=== PATIENT | female | born 1985 | race Caucasian/White ===

== ENCOUNTER 2023-06-11 13:53 | Outpatient (CLI) | payer MEDICAID | END 2023-06-11 23:59 | disposition critical access hospital (66) | LOC: EMS 13:53 | DX: R10.817 Generalized abdominal tenderness (principal); R11.0 Nausea | CPT/HCPCS: A0425; A0429; A0999 ==

== ENCOUNTER 2023-06-11 14:17 | Emergency (ER) | payer MEDICAID, OTHER ==
[2023-06-11] MEDS ORDERED: BUPRENORPHINE 0.3 MG/ML VIAL IM ONE (14:22)
--- NOTE | 2023-06-11 14:26 | ED Physician Documentation ---
History of Present Illness - Stated complaint Stated Complaint: ABD PX - Chief complaint Chief Complaint: Abd Pain - History obtained from History obtained from: Patient - History of Present Illness Timing: Yesterday Pain level max: 8 Pain level now: 8 - Additonal information Additional information: Patient is a 37-year-old female who states that she uses methamphetamines and fentanyl. She states last used 2 days ago. She states she went to [facility] for detox but they "were not giving me enough drugs". Therefore she left this morning. She is now complaining of continued abdominal pain. No fevers. No chills. She states she uses about a gram of fentanyl per day. She denies any alcohol use. Denies any benzodiazepine use. Denies any possibility of . Nothing makes it better or worse. No fevers. No chills. No cough. No congestion. Describes her abdominal pain is diffuse, crampy. Patient is generally uncooperative with exam. Patient denies being suicidal or homicidal Review of Systems Constitutional: denies: Fever, Chills Throat: denies: Sore throat Cardiac: denies: Chest pain / pressure, Palpitations Respiratory: denies: Dyspnea, Cough GI: reports: Nausea, Diarrhea. denies: Vomiting, Hematemesis, Bloody / black stool : denies: Dysuria, Frequency, Hesitancy, Now EGA Skin: denies: Rash Musculoskeletal: denies: Neck pain, Back pain Neurologic: denies: Headache PD PAST MEDICAL HISTORY - Past Medical History Past Medical History: No - Past Surgical History Past Surgical History: No - Allergies Allergies/Adverse Reactions: Allergies Allergy/AdvReac Type Severity Reaction Status Date / Time all antibiotics. Allergy Unknown Uncoded 06/11/23 14:30 - Living Situation Living Arrangement: reports: Homeless - Social History Does the pt smoke?: No Does the pt drink ETOH?: No Substance Use and Type: Meth, Other (fentanyl) - Family History Family history: reports: Non contributory PD ED PE NORMAL - Vitals Vital signs reviewed: Yes - General General: Alert and oriented X 3, Other (moaning) - HEENT HEENT: PERRL, Moist mucous membranes - Neck Neck: Supple, no meningeal sign - Cardiac Cardiac: RRR, Strong equal pulses - Respiratory Respiratory: No respiratory distress, Clear bilaterally - Abdomen Abdomen: Soft, Non tender, Non distended - Back Back: No CVA TTP, No spinal TTP - Derm Derm: Warm and dry - Extremities Extremities: No edema, No calf tenderness / cord - Neuro Neuro: Alert and oriented X 3 - Psych Psych: Normal mood, Normal affect Results - Vitals Vitals: Vital Signs - 24 hr 06/11/23 06/11/23 06/11/23 14:21 15:30 15:45 Temperature 36.1 C L Heart Rate 82 99 88 Respiratory 22 18 16 Rate Blood Pressure 159/103 H 160/99 H 147/74 H O2 Saturation 99 100 98 Oxygen O2 Source Room air - Labs Labs: Laboratory Tests 06/11/23 14:44 Urine Color YELLOW Urine Clarity CLEAR Urine pH 8.0 H Ur Specific [place] 1.020 Urine Protein NEGATIVE Urine Glucose (UA) NEGATIVE Urine Ketones TRACE Urine Occult Blood NEGATIVE Urine Nitrite NEGATIVE Urine Bilirubin NEGATIVE Urine Urobilinogen 0.2 (NORMAL) Ur Leukocyte Esterase NEGATIVE Ur Microscopic Review NOT INDICATED Urine Culture Comments NOT INDICATED Urine HCG, Qual NEGATIVE Urine Opiates Screen NEGATIVE Ur Buprenorphine Scrn NEGATIVE Ur Oxycodone Screen NEGATIVE Urine Methadone Screen NEGATIVE Ur Barbiturates Screen NEGATIVE Ur Tricyclics Screen NEGATIVE Ur Phencyclidine Scrn NEGATIVE Ur Amphetamine Screen POSITIVE H U Methamphetamines Scrn POSITIVE H U Benzodiazepines Scrn POSITIVE H Urine Cocaine Screen NEGATIVE U Cannabinoids Screen NEGATIVE Ur Drug Screen Comment CUTOFF CONC BELOW: PD Medical Decision Making - ED course Complexity details: reviewed results, re-evaluated patient, considered differential, d/w patient ED course: Patient was given a dose of buprenorphine here as well as a dose of Phenergan. Abdominal pain resolved. Nausea and vomiting resolved. She states that she wants to go to a [facility], she will go to the [facility] or [facility] in [place]. She states that she her plan is to return home to [place] and seek potential detox from there. Does not want to go anywhere [facility]. She is not suicidal or homicidal. Patient is well-appearing, nontoxic. Ambulating under her own power. Tolerating p.o. without difficulty. Patient counseled regarding signs and symptoms for which I believe and urgent re-evaluation would be necessary. Patient with good understanding of and agreement to plan and is comfortable going home at this time This document was made in part using voice recognition software. While efforts are made to proofread this document, sound alike and grammatical errors may occur. Departure - Departure Disposition: 01 Home, Self Care Clinical Impression: Drug abuse and dependence Condition: Good Instructions: ED Drug Abuse General, ED Withdrawal Narcotic Follow-Up: your,doctor tomorrow [Other] Comments: Please follow-up with your doctor for further care. Aleksey patel states that they will not take you back for detox until 96 hours have elapsed. New have stated that you [facility] [place]. Please return if you worsen. You were given a dose of buprenorphine and Phenergan [facility]. Forms: PCP List Discharge Date/Time: 06/11/23 15:45
[2023-06-11] MEDS ORDERED: BUPRENORPHINE 0.3 MG/ML VIAL IM STA (14:33)
[2023-06-11] MEDS ORDERED: PROMETHAZINE 25 MG/1 ML VIAL IM STA (15:04)
[2023-06-11 15:09] LABS: BILIRUBIN,URINE NEGATIVE (NEGATIVE); GLUCOSE, URINE (UA) NEGATIVE (NEGATIVE); KETONES,URINE (UA) TRACE mg/dL (NEGATIVE); LEUKOCYTE ESTERASE, URINE NEGATIVE (NEGATIVE); NITRITE,URINE NEGATIVE (NEGATIVE); OCCULT BLOOD,URINE NEGATIVE (NEGATIVE); PROTEIN,URINE NEGATIVE (NEGATIVE); UROBILINOGEN,URINE 0.2 (NORMAL) E.U./dL (NORMAL)
[2023-06-11 15:11] LABS: CLARITY,URINE CLEAR (CLEAR); HCG UR QUAL NEGATIVE
[2023-06-11 15:18] LABS: AMPHETAMINE SCREEN,URINE POSITIVE (NEGATIVE); BARBITURATE SCREEN,UR NEGATIVE (NEGATIVE); BENZODIAZEPINES SCREEN, URINE POSITIVE (NEGATIVE); BUPRENORPHINE SCREEN, URINE NEGATIVE (NEGATIVE); COCAINE SCREEN URINE NEGATIVE (NEGATIVE); METHADONE SCREEN, URINE NEGATIVE (NEGATIVE); METHAMPHETAMINES SCREEN, URINE POSITIVE (NEGATIVE); OPIATE SCREEN, URINE NEGATIVE (NEGATIVE); OXYCODONE SCREEN, URINE NEGATIVE (NEGATIVE); THC CANNABINOID SCREEN, URINE NEGATIVE (NEGATIVE); TRICYCLIC ANTIDEPRESSANT,URINE NEGATIVE (NEGATIVE)
[2023-06-11 16:29] VITALS: BP 147/74; O2SAT 98
== END 2023-06-11 15:45 | disposition home or self-care (01) ==
LOC: ED 14:17
DX: F11.20 Opioid dependence, uncomplicated (principal); Z59.00 Homelessness unspecified
CPT/HCPCS: 80306; 81001; 81003; 81025; 87086; 96372; 99283

== ENCOUNTER 2023-06-12 09:45 | Outpatient (CLI) | payer MEDICAID | END 2023-06-12 23:59 | disposition critical access hospital (66) | LOC: EMS 09:45 | DX: T76.21XA Adult sexual abuse, suspected, initial encounter (principal); R10.2 Pelvic and perineal pain; K62.89 Other specified diseases of anus and rectum; R10.9 Unspecified abdominal pain; R45.1 Restlessness and agitation | CPT/HCPCS: A0425; A0429; A0999 ==

== ENCOUNTER 2023-06-12 10:05 | Emergency (ER) | payer OTHER, MEDICAID ==
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
[2023-06-12 10:32] VITALS: BP 175/96; O2SAT 99
[2023-06-12] MEDS ORDERED: ONDANSETRON ODT 4 MG TABLET TL STA (10:55)
[2023-06-12] MEDS ORDERED: BUPRENORPHINE 0.3 MG/ML VIAL IM ONE (10:55)
[2023-06-12] MEDS ORDERED: diazePAM INJ 5 MG/ML SYRINGE IM STA (10:56)
[2023-06-12 11:14] LABS: BASOPHILS % (AUTO) 0.7 %; HCT - HEMATOCRIT 40.2 % (37.0-47.0); HGB - HEMOGLOBIN 13.2 g/dL (12.0-16.0); LYMPHOCYTES # (AUTO) 1.7 10^3/uL (1.5-3.5); LYMPHOCYTES % (AUTO) 27.7 %; MEAN CORPUSCULAR HEMOGLOBIN 27.4 pg (27.0-31.0); MEAN CORPUSCULAR HGB CONC 32.8 g/dL (32.0-36.0); MEAN CORPUSCULAR VOLUME 83.6 fL (81.0-99.0); MEAN PLATELET VOLUME 8.8 fL (7.9-10.8); MONOCYTES # (AUTO) 0.4 10^3/uL (0.0-1.0); MONOCYTES % (AUTO) 6.8 %; NEUTROPHILS # (AUTO) 3.9 10^3/uL (1.5-6.6); NEUTROPHILS % (AUTO) 64.3 %; PLT - PLATELET COUNT 272 10^3/uL (130-450); RED BLOOD COUNT 4.81 10^6/uL (4.20-5.40); RED CELL DISTRIBUTION WIDTH 12.8 % (12.0-15.0)
[2023-06-12 11:29] LABS: ALBUMIN 4.6 g/dL (3.2-5.5); ALBUMIN/GLOBULIN RATIO 1.5 (1.0-2.2); BILIRUBIN,TOTAL 0.3 mg/dL (0.2-1.0); CREATININE 0.6 mg/dL (0.6-1.3); MAGNESIUM 1.9 mg/dL (1.7-2.3); POTASSIUM 3.4 mmol/L (3.5-4.5); TOTAL PROTEIN 7.7 g/dL (6.4-8.9)
[2023-06-12] MEDS ORDERED: BUPRENORPHINE/NALOXONE 8-2 MG TAB SL STA (11:49)
[2023-06-12] MEDS ORDERED: hydrOXYzine PAMOATE 25 MG CAPSULE PO STA (12:00)
== END 2023-06-12 13:10 | disposition short-term general hospital (02) ==
LOC: EDUNIT# → ED 10:05
DX: F11.93 Opioid use, unspecified with withdrawal (principal); T76.21XA Adult sexual abuse, suspected, initial encounter; B85.2 Pediculosis, unspecified; F17.200 Nicotine dependence, unspecified, uncomplicated; Z59.00 Homelessness unspecified
CPT/HCPCS: 36415; 80053; 83690; 83735; 85025; 96372; 99284; 99285; A9270; J0592; Q0162

== ENCOUNTER 2023-06-12 12:43 | Outpatient (CLI) | payer MEDICAID, OTHER | END 2023-06-12 12:44 | disposition short-term general hospital (02) | LOC: EMS 12:43 | PROVIDERS: ATTEND Emergency Medicine | DX: T76.21XA Adult sexual abuse, suspected, initial encounter (principal); R10.2 Pelvic and perineal pain; R10.9 Unspecified abdominal pain | CPT/HCPCS: A0425; A0428 ==